=== PATIENT | male | born 1980 | race Two or more races ===

== ENCOUNTER 2019-01-05 22:37 | Emergency (ER) | payer BC, MEDICAID ==
[~2019-01-05] VITALS: Ht 175.3 cm; Wt 83.9 kg
--- NOTE | 2019-01-05 22:55 | NUR ---
PT BIBSELF C/O BURNING ON URINATION WITH DISCHARGE X 3 DAYS. HX KIDNEY STONES. PT AOX4. NAD NOTED. RESP EVEN AND UNLABORED. PT IN BED 9. WILL CONTINUE TO MONITOR.
--- NOTE | 2019-01-05 23:14 | NUR ---
URINE COLLECTED AND SENT TO LAB
[2019-01-05 23:28] LABS: APPEARANCE,URINE CLEAR (CLEAR); BILIRUBIN,URINE NEGATIVE (NEGATIVE); BLOOD, URINE NEGATIVE Ery/uL (NEGATIVE); COLOR,URINE YELLOW (YELLOW); KETONES,URINE TRACE (NEGATIVE); LEUKOCYTE ESTERASE ,URINE NEGATIVE (NEGATIVE); NITRITE, URINE NEGATIVE (NEGATIVE); PH,URINE 6.5 (5.0-8.0); PROTEIN,URINE TRACE mg/dl (NEGATIVE); UGLUCOSE NEGATIVE (NEGATIVE); UROBILINOGEN,URINE 0.2 EU/dL (0.2)
[2019-01-05 23:36] LABS: BACTERIA,URINE None seen /HPF (None Seen); MUCUS,URINE Few /LPF (None Seen); RBC,URINE 0-2 /HPF (0-2); SQUAMOUS EPITHELIAL CELL,UR Few /HPF (None Seen); WBC,URINE 21-50 /HPF (0-3)
[2019-01-06] MEDS ORDERED: AZITHROMYCIN 250 MG TABLET PO ONE
[2019-01-06] MEDS ORDERED: CEFTRIAXONE 500 MG VIAL IM ONE
[2019-01-06] MEDS ORDERED: CEFTRIAXONE 500 MG VIAL ONE (00:06)
[2019-01-06] MEDS ORDERED: AZITHROMYCIN 250 MG TABLET ONE (00:06)
[2019-01-06] MEDS ORDERED: LIDOCAINE 1% INJ 50 ML MDV IJ ONE (00:08)
[2019-01-06 00:19] VITALS: BP 146/98
--- NOTE | 2019-01-06 00:25 | NUR ---
Patient discharged to home in stable condition. Written and verbal after care instructions given. Patient verbalizes understanding of instruction. PT AMBULATORY WITH STEADY GAIT.
== END 2019-01-06 00:27 | disposition home or self-care (01) ==
LOC: ER 22:40
DX: N34.2 Other urethritis (principal); I10 Essential (primary) hypertension; F17.200 Nicotine dependence, unspecified, uncomplicated; Z87.442 Personal history of urinary calculi; Z90.89 Acquired absence of other organs; Z98.890 Other specified postprocedural states; Z60.2 Problems related to living alone
CPT/HCPCS: 81000-TC; 82962-TC; 87086-TC; 87491; 87591; J0696; J3490

== ENCOUNTER 2019-05-30 23:49 | Emergency (ER) | payer SELFPAY ==
[~2019-05-30] VITALS: Ht 177.8 cm; Wt 78.0 kg
[2019-05-30 23:54] VITALS: BP 122/79
== END 2019-05-31 00:22 | disposition home or self-care (01) ==
LOC: ER 23:49
DX: M54.12 Radiculopathy, cervical region (principal); M62.838 Other muscle spasm; I10 Essential (primary) hypertension; F17.200 Nicotine dependence, unspecified, uncomplicated; Z87.442 Personal history of urinary calculi; Z90.89 Acquired absence of other organs; Z60.2 Problems related to living alone

== ENCOUNTER 2023-03-23 22:56 | Emergency (ER) | payer SELFPAY ==
[~2023-03-23] VITALS: Ht 170.2 cm; Wt 77.1 kg
--- NOTE | 2023-03-23 23:00 | NUR ---
HERMAN FROM OUTSIDE APPT C/O OD SMOKING FENTANYL. EMS ADMIN NARCAN 4MG IN & 2MG IV. PT IS AAOX4. ABLE TO MAKE NEEDS KNOWN. ATTACHED TO MONITOR. VITALS CHECKED.
--- NOTE | 2023-03-23 23:09 | NUR ---
PROVIDE PT WITH URINE CUP; AWAITING WITH URINE
--- NOTE | 2023-03-23 23:14 | NUR ---
CAME WITH IV MARLENA G18 ON RIGHT AC
--- NOTE | 2023-03-23 23:15 | NUR ---
BS 272
--- NOTE | 2023-03-23 23:18 | NUR ---
CALLED LAB FOR BLOOD DRAW.
--- NOTE | 2023-03-23 23:22 | NUR ---
EKG DONE AT BEDSIDE
--- NOTE | 2023-03-23 23:25 | NUR ---
PT WENT TO RESTROOM TO TRY TO GIVE URINE SAMPLE
[2023-03-23 23:37] LABS: BASOPHILS # (AUTO) 0.1 K/uL (0.0-0.2); BASOPHILS % (AUTO) 0.8 % (0.0-2.0); EOSINOPHILS % (AUTO) 1.9 % (0.0-6.0); HEMATOCRIT 45 % (39-51); HEMOGLOBIN 14.8 g/dL (13.5-17.5); LYMPHOCYTES # (AUTO) 3.5 K/uL (0.8-4.8); LYMPHOCYTES % (AUTO) 30.4 % (20.0-44.0); MEAN CORPUSCULAR HGB CONC 33 g/dl (31.0-36.0); MEAN CORPUSCULAR VOLUME 90 fL (80-96); MONOCYTES # (AUTO) 0.4 K/uL (0.1-1.30); MONOCYTES % (AUTO) 3.7 % (2.0-12.0); NEUTROPHILS # (AUTO) 7.2 K/uL (1.8-8.9); NEUTROPHILS % (AUTO) 63.2 % (43.0-81.0); PLATELET COUNT (AUTO) 334 K/uL (150-450); RED BLOOD CELL COUNT(AUTO) 5.01 MIL/uL (4.5-6.0); WHITE BLOOD COUNT (AUTO) 11.4 K/uL (4.3-11.0)
[2023-03-23 23:48] LABS: CALCIUM, SERUM 9.3 mg/dL (8.5-10.1); CARBON DIOXIDE 26 mmol/L (21-32); CHLORIDE 100 mmol/L (98-107); CREATININE 1.4 mg/dL (0.6-1.3); GLUCOSE 248 mg/dL (74-106); POTASSIUM 3.8 mmol/L (3.5-5.1); SODIUM SERUM 139 mmol/L (136-145); UREA NITROGEN, BLOOD 17 mg/dL (7-18)
--- NOTE | 2023-03-23 23:48 | NUR ---
CHECK ON PT, CANNOT BE FOUND. CHECKED ON RESTROOMS, ER BEDS, LOBBY, WAITING AREA CANNOT BE FOUND. CN MADE AWARE. SECURITY MADE AWARE.
--- NOTE | 2023-03-23 23:49 | NUR ---
PT ELOPED FROM ER. MADE AWARE. CN MADE AWARE THAT PT HAS IV MARLENA ON RIGHT AC. WE WILL INFORM [employer].
[2023-03-23 23:53] LABS: ALANINE AMINOTRANSFERASE 64 U/L (12-78); ALBUMIN 4.1 g/dL (3.4-5.0); ALKALINE PHOSPHATASE 72 U/L (46-116); ASPARTATE AMINOTRANSFERASE 25 U/L (15-37); BILIRUBIN,DIRECT 0.1 mg/dL (0.0-0.2); BILIRUBIN,TOTAL 0.3 mg/dL (0.2-1.0); TOTAL PROTEIN, SERUM 7.3 g/dL (6.4-8.2)
[2023-03-24 00:05] LABS: ALCOHOL, BLOOD < 3 mg/dL (0-0)
--- NOTE | 2023-03-24 00:14 | NUR ---
[facility] NON EMERGENT NUMBER CALLED SPOKE TO OP#[phone]
--- NOTE | 2023-03-24 00:27 | NUR ---
FLORENCE CARRASCO CALLED [facility] TO MAKE THEM AWARE THAT PT ELOPED AND HAVE AN IV MARLENA WITH HIM
[2023-03-24 00:28] VITALS: BP 139/108
== END 2023-03-24 00:28 | disposition left against medical advice (07) ==
LOC: ER 23:10
DX: T40.411A Poisoning by fentanyl or fentanyl analogs, accidental (unintentional), initial encounter (principal); F17.200 Nicotine dependence, unspecified, uncomplicated; I10 Essential (primary) hypertension; Z87.442 Personal history of urinary calculi; Z90.49 Acquired absence of other specified parts of digestive tract; Z60.2 Problems related to living alone; Y92.89 Other specified places as the place of occurrence of the external cause
CPT/HCPCS: 36415; 80048-TC; 80076-TC; 82962-TC; 85025-TC; G0480